=== PATIENT | female | born 1980 | race American Indian/Alaskan Native ===

== ENCOUNTER 2019-05-27 13:23 | Emergency (ER) | payer SELFPAY ==
[2019-05-27] MEDS ORDERED: ASPIRIN PO ONE (13:34)
[2019-05-27 13:52] LABS: Basophils % (Auto) 0.6 % (0.0-1.8); Eosinophils % (Auto) 0.7 % (0.0-4.3); Hematocrit 40.7 % (30.3-42.9); Hemoglobin 13.5 gm/dl (10.1-14.3); Lymphocytes # (Auto) 1.3 K/mm3 (1.2-5.4); Lymphocytes % (Auto) 29.1 % (13.4-35.0); Mean Corpuscular HGB Conc 33 % (30-34); Mean Corpuscular Volume 96 fl (79-97); Monocytes # (Auto) 0.3 K/mm3 (0.0-0.8); Monocytes % (Auto) 7.7 % (0.0-7.3); Platelet Count 174 K/mm3 (140-440); Red Blood Count 4.24 M/mm3 (3.65-5.03); Red Cell Distribution Width 12.8 % (13.2-15.2)
--- NOTE | 2019-05-27 14:51 | XRay Report ---
CHEST 2 VIEWS INDICATION / CLINICAL INFORMATION: Chest Pain. COMPARISON: None available. FINDINGS: SUPPORT DEVICES: None. HEART / MEDIASTINUM: No significant abnormality. LUNGS / PLEURA: No significant pulmonary or pleural abnormality. No pneumothorax. ADDITIONAL FINDINGS: No significant additional findings. IMPRESSION: 1. No acute findings. Signer Name: Alok Luna MD Signed: 05/27/2019 2:47 PM Workstation Name: [id number]
[2019-05-27 14:54] LABS: BUN/Creatinine Ratio TNR; Blood Urea Nitrogen TNR mg/dL (7-17)
[2019-05-27 14:55] LABS: Calcium TNR mg/dL (8.4-10.2); Hemolysis Index TNR
[2019-05-27] MEDS ORDERED: TORADOL IV ONE (15:18)
--- NOTE | 2019-05-27 15:38 | Emergency Department Report ---
ED Chest Pain HPI - General Chief Complaint: Chest Pain Stated Complaint: CHEST PAIN Time Seen by Provider: 05/27/19 15:07 Source: patient Mode of arrival: Ambulatory Limitations: No Limitations - History of Present Illness Initial Comments: Is a 39-year-old female who presents with chest pain that has occurred for 1 day. Patient states that chest pain as an 8 out of 10 and left side of her chest. It is pleuritic in nature in a deep breath makes it worse and nothing makes it better. The patient states that she has no nausea no vomiting. States that she has not had chest pain like this before patient denies having any shortness of breath. - Related Data Allergies Allergy/AdvReac Type Severity Reaction Status Date / Time No Known Allergies Allergy Verified 05/27/19 15:09 Heart Score - HEART Score History: Slightly suspicious EKG: Normal Age: < 45 Risk factors: 1-2 risk factors Troponin: < normal limit HEART Score: 1 ED Review of Systems ROS: Stated complaint: CHEST PAIN Other details as noted in HPI Constitutional: denies: chills, fever Eyes: denies: eye pain, eye discharge, vision change ENT: denies: ear pain, throat pain Respiratory: denies: cough, shortness of breath, wheezing Cardiovascular: chest pain. denies: palpitations Endocrine: no symptoms reported Gastrointestinal: denies: abdominal pain, nausea, diarrhea Genitourinary: denies: urgency, dysuria, discharge Musculoskeletal: denies: back pain, joint swelling, arthralgia Skin: denies: rash, lesions Neurological: denies: headache, weakness, paresthesias Psychiatric: denies: anxiety, depression Hematological/Lymphatic: denies: easy bleeding, easy bruising ED Past Medical Hx - Past Medical History Previous Medical History?: Yes Additional medical history: palpitations - Surgical History Past Surgical History?: Yes Additional Surgical History: leak Aortic Valve r/t rheumatic fever age 16- open heart surgery, TUBILIGATION - Social History Smoking Status: Never Smoker Substance Use Type: None ED Physical Exam - General Limitations: No Limitations General appearance: alert, in no apparent distress - Head Head exam: Present: atraumatic, normocephalic - Eye Eye exam: Present: normal appearance - ENT ENT exam: Present: mucous membranes moist - Neck Neck exam: Present: normal inspection - Respiratory Respiratory exam: Present: normal lung sounds bilaterally, chest wall tenderness (left side ). Absent: respiratory distress - Cardiovascular Cardiovascular Exam: Present: regular rate, normal rhythm. Absent: systolic murmur, diastolic murmur, rubs, gallop - GI/Abdominal GI/Abdominal exam: Present: soft, normal bowel sounds - Extremities Exam Extremities exam: Present: normal inspection - Back Exam Back exam: Present: normal inspection - Neurological Exam Neurological exam: Present: alert, oriented X3 - Psychiatric Psychiatric exam: Present: normal affect, normal mood - Skin Skin exam: Present: warm, dry, intact, normal color. Absent: rash ED Course Vital Signs 05/27/19 05/27/19 05/27/19 13:30 15:59 17:14 Temperature 97.6 F Pulse Rate 81 72 73 Respiratory 18 17 17 Rate Blood Pressure 142/89 Blood Pressure 105/66 145/73 [Left] O2 Sat by Pulse 98 97 98 Oximetry KASHMIR score - [place] Score Age > 65: (0) No Aspirin use within the Past 7 Days: (0) No 3 or more CAD Risk Factors: (0) No 2 or more Angina events in past 24 hrs: (0) No Known CAD with more than 50% Stenosis: (0) No Elevated Cardiac Markers: (0) No ST Deviation Greater than 0.5mm: (0) No KASHMIR Score: 0 ED Medical Decision Making - Lab Data Result diagrams: 05/27/19 13:36 05/27/19 15:35 Lab Results 05/27/19 05/27/19 05/27/19 Range/Units 13:36 13:36 15:35 WBC 4.5 (4.5-11.0) K/mm3 RBC 4.24 (3.65-5.03) M/mm3 Hgb 13.5 (10.1-14.3) gm/dl Hct 40.7 (30.3-42.9) % MCV 96 (79-97) fl MCH 32 (28-32) pg MCHC 33 (30-34) % RDW 12.8 L (13.2-15.2) % Plt Count 174 (140-440) K/mm3 Lymph % (Auto) 29.1 (13.4-35.0) % [place] % (Auto) 7.7 H (0.0-7.3) % Eos % (Auto) 0.7 (0.0-4.3) % Baso % (Auto) 0.6 (0.0-1.8) % Lymph # 1.3 (1.2-5.4) K/mm3 [place] # 0.3 (0.0-0.8) K/mm3 Eos # 0.0 (0.0-0.4) K/mm3 Baso # 0.0 (0.0-0.1) K/mm3 Seg Neutrophils % 61.9 (40.0-70.0) % Seg Neutrophils # 2.8 (1.8-7.7) K/mm3 Sodium TNR 138 Potassium TNR 4.6 Chloride TNR 103.7 Carbon Dioxide TNR 23 Anion Gap TNR 16 BUN TNR 13 Creatinine TNR 0.7 Estimated GFR TNR > 60 BUN/Creatinine Ratio TNR 19 Glucose TNR 80 Calcium TNR 9.7 Troponin T TNR < 0.010 - EKG Data -: EKG Interpreted by Me - EKG Data 05/27/19 17:17 EKG shows normal sinus rhythm no ST segment elevation no T wave inversion normal axis. - Radiology Data Radiology results: report reviewed, image reviewed CXR: Shows no acute cardiopulmonary disease - Medical Decision Making Chief Medical diagnosis: Costochondritis differential medical diagnosis: NSTEMI, Arrythmia I will get ekg, cbc, bmp, troponin and IV pain medication Patient's labratory work-up is unremarkable I will discharge the patient. Critical care attestation.: If time is entered above; I have spent that time in minutes in the direct care of this critically ill patient, excluding procedure time. ED Disposition Clinical Impression: Chest wall pain Disposition: DC-01 TO HOME OR SELFCARE Is pt being admited?: No Does the pt Need Aspirin: No Condition: Stable Instructions: Chest Pain (ED) Referrals: JOHNNA ODONNELL MD [Primary Care Provider] - 3-5 Days
[2019-05-27 16:04] LABS: BUN/Creatinine Ratio 19; Blood Urea Nitrogen 13 mg/dL (7-17); Calcium 9.7 mg/dL (8.4-10.2); Hemolysis Index 13
[2019-05-27] MEDS ORDERED: PERCOCET 5/325 PO ONE (16:35)
[2019-05-27] MEDS ORDERED: MORPHINE IV ONE (16:35)
[2019-05-27] MEDS ORDERED: ZOFRAN IV ONE (17:02)
[2019-05-27] MEDS ORDERED: BENADRYL IV ONE (17:42)
[2019-05-27] MEDS ORDERED: LIDOCAINE VISCOUS 2% PO ONE (17:43)
[2019-05-27 18:26] VITALS: BP 125/67
== END 2019-05-27 19:07 | disposition home or self-care (01) ==
LOC: ED 13:23
DX: R07.89 Other chest pain (principal); Z53.21 Procedure and treatment not carried out due to patient leaving prior to being seen by health care provider
CPT/HCPCS: 36415; 71046; 80048; 84484; 85025; 93005; 93010; J1200; J1885; J2270; J2405